=== PATIENT | male | born 1985 | race Caucasian/White ===

== ENCOUNTER 2023-08-08 14:25 | Emergency (ER) | payer OTHER ==
[~2023-08-08] VITALS: Ht 175.3 cm; Wt 83.8 kg
[2023-08-08 14:34] VITALS: TEMP 97.9
[2023-08-08] MEDS: METOPROLOL 5 MG/5 ML VIAL IV SCH ×2 (14:56→16:29)
[2023-08-08] MEDS: METOPROLOL TART 25 MG TABLET PO ONE ×2 (14:56→16:29)
[2023-08-08 14:59] LABS: BASO # 0.1 10^3/uL (0.0-0.2); BASO % 0.6 % (0.0-1.0); EOS # 0.1 10^3/uL (0.0-0.5); HEMATOCRIT 45.1 % (42.0-52.0); LYMPH # 1.3 10^3/uL (1.5-5.0); LYMPH % 12.6 % (24.0-44.0); MEAN CORPUSCULAR HEMOGLOBIN 31.7 pg (27.0-33.0); MEAN CORPUSCULAR HGB CONC 35.5 g/dl (32.0-36.5); MEAN CORPUSCULAR VOLUME 89.3 fl (80.0-96.0); MONO # 0.7 10^3/uL (0.0-0.8); MONO % 6.4 % (2.0-8.0); NEUTROPHILS # 8.2 10^3/uL (1.5-8.5); NEUTROPHILS % 78.7 % (36.0-66.0); PLATELET COUNT, AUTOMATED 247 10^3/uL (150-450); RED BLOOD COUNT 5.05 10^6/uL (4.30-6.10); WHITE BLOOD COUNT 10.3 10^3/uL (4.0-10.0)
[2023-08-08] MEDS: NS 1,000 ML IV ONE ×2 (15:06→16:29)
[2023-08-08 15:32] LABS: BLOOD UREA NITROGEN 17 MG/DL (9-23); CALCIUM LEVEL 9.3 MG/DL (8.5-10.1); CARBON DIOXIDE LEVEL 24 MMOL/L (20-31); CHLORIDE LEVEL 107 MMOL/L (98-107); CREATININE FOR GFR 0.98 MG/DL (0.70-1.30); FREE THYROXINE INDEX 2.8 % (1.4-3.8); GLOMERULAR FILTRATION RATE > 60.0 (>60); GLUCOSE, FASTING 88 MG/DL (60-100); POTASSIUM SERUM 4.3 MMOL/L (3.5-5.1); SODIUM LEVEL 139 MMOL/L (136-145); T UPTAKE 33.3 % (22.5-37.0); THYROID STIMULATING HORMONE 1.459 uIU/ML (0.55-4.78); THYROXINE (T4) 8.3 UG/DL (4.5-10.9)
[2023-08-08 16:57] VITALS: BP 125/80
[2023-08-08] MEDS: APIXABAN 5 MG TAB (ELIQUIS) PO ONE (18:45)
[2023-08-08 18:50] VITALS: BP 125/81; O2SAT 95
[2023-08-09] MEDS ORDERED: ASPI-424 PO (08:55)
== END 2023-08-08 19:03 | disposition home or self-care (01) ==
LOC: EDBD 14:25 → M ED 14:25
DX: I48.91 Unspecified atrial fibrillation (principal); F10.10 Alcohol abuse, uncomplicated; Z87.891 Personal history of nicotine dependence; Z79.82 Long term (current) use of aspirin

== ENCOUNTER 2023-08-09 07:57 | Emergency (ER) | payer OTHER ==
[~2023-08-09] VITALS: Ht 175.3 cm; Wt 82.2 kg
[2023-08-09 07:57] VITALS: BP 115/82; TEMP 97.7; O2SAT 98
[2023-08-09] MEDS ORDERED: ASPI-424 PO (08:55)
== END 2023-08-09 09:15 | disposition home or self-care (01) ==
LOC: M ED 07:57
DX: R00.1 Bradycardia, unspecified (principal); I48.91 Unspecified atrial fibrillation; Z79.82 Long term (current) use of aspirin